=== PATIENT | female | born 1965 | race Caucasian/White ===

== ENCOUNTER 2022-08-03 11:05 | Emergency (ER) | payer OTHER ==
[~2022-08-03] VITALS: Ht 157.4 cm; Wt 40.8 kg
== END 2022-08-03 13:05 | disposition left against medical advice (07) ==
LOC: ED 11:05
DX: M79.605 Pain in left leg (principal); Z53.21 Procedure and treatment not carried out due to patient leaving prior to being seen by health care provider

== ENCOUNTER 2023-08-21 17:31 | Emergency (ER) | payer OTHER ==
[~2023-08-21] VITALS: Ht 152.4 cm; Wt 44.0 kg
[2023-08-21 18:40] LABS: BASO % 0.4 % (0.0-1.0); EOS # 0.1 10*3/uL (0.0-0.4); EOS % 0.8 % (1.0-4.0); HEMATOCRIT 36.2 % (37.0-47.0); LYMPH # 2.3 10*3/uL (1.3-4.4); LYMPH % 29.1 % (27.0-41.0); MEAN CELL VOLUME 99.5 fl (81.0-99.0); MEAN CORPUSCULAR HGB 32.7 pg (27.0-31.0); MEAN CORPUSCULAR HGB CONC 32.9 g/dl (33.0-37.0); MEAN PLATELET VOLUME 8.6 fl (9.6-12.3); MONO # 0.7 10*3/uL (0.1-1.0); MONO % 9.2 % (3.0-9.0); NEUT # 4.7 10*3/uL (2.3-7.9); NEUT % 60.1 % (47.0-73.0); PLATELET COUNT AUTOMATED 365 10*3/uL (130-400); RED BLOOD COUNT 3.64 10*6/uL (4.10-5.10); RED CELL DISTRI WIDTH 13.6 % (0-14.5); WHITE BLOOD COUNT 7.8 10*3/uL (4.8-10.8)
[2023-08-21 19:00] LABS: ALKALINE PHOSPHATASE 100 U/L (46-116); BUN 5 mg/dl (9-23); CHLORIDE 101 mmol/L (98-107); POTASSIUM 3.7 mmol/L (3.4-5.1); SGPT/ALT 15 U/L (5-49); TOTAL PROTEIN 7.1 gm/dL (6.0-8.0)
[2023-08-21] MEDS ORDERED: OMNICEF300 MG PO (20:46)
== END 2023-08-21 21:50 | disposition home or self-care (01) ==
LOC: ED 17:31
PROVIDERS: Nurse Practitioner Family
DX: H66.93 Otitis media, unspecified, bilateral (principal); R07.89 Other chest pain; R42 Dizziness and giddiness; Z88.0 Allergy status to penicillin; Z88.8 Allergy status to other drugs, medicaments and biological substances; Z98.890 Other specified postprocedural states; Z87.891 Personal history of nicotine dependence